=== PATIENT | female | born 1990 | race Caucasian/White ===

== ENCOUNTER 2020-08-14 12:03 | Inpatient (IN) ==
[2020-08-14] MEDS ORDERED: OXYTOCIN 30 UNITS/500 ML BAG IV PRN ×2 (14:27)
[2020-08-14 15:09] LABS: Hematocrit (blood only) 37.5 % (37-47); Hemoglobin 12.3 g/dL (12.0-16.0); Mean Corpuscular Hemoglobin 25.4 pg (25-34); Mean Corpuscular Hgb Conc 32.8 g/dL (32-36); Mean Corpuscular Volume 77.5 fL (80-100); Platelet Count 151 K/uL (130-400); RDW Coefficient of Variation 13.9 % (11.5-14.5); RDW Standard Deviation 39.7 fL (36.4-46.3); Red Blood Count 4.84 M/uL (4.2-5.4); White Blood Count 12.31 K/uL (4.8-10.8)
--- NOTE | 2020-08-14 15:09 | History & Physical Report ---
Date of Service August 14, 2020 Assessment & Plan (1) Premature rupture of membranes: PNL: Rh pos, RI, GBS neg Admit, labs, start IV COVID test ordered Patient would like to trial labor unmedicated. Not opposed to medications though if needed; epidural if/when desired; anesthesiology consult placed. Proceed with induction of labor per Pitocin augmentation protocol. Anticipate Admission and Anticipated Discharge Date Admission Date: August 14, 2020 History of Present Illness Primary Care Provider: Seth Sheldon MD Catrachita Solo is a 30 y/o female currently at 39+2 WGA with an CHRISTINE 08/19/20 as determined by LMP who is here for with prom. Her was complicated by an anterior midbody subserosal fibroid seen on colby u/s (4x4cm). Today, patient was evaluated in OB clinic and reported sensation of loss of fluid. She was found to have SE, no pool, + Nitrazine, and ferning. Patient with no specific complaints or concerns. - contractions; + movement; + fluid loss; - bloody show Had regular appointments with OB. Blood type: A+ Antibody screen: neg Labs 01/23/20 Rubella: immune VDRL/RPR: NR Gonorrhea: neg Chlamydia: neg HIV: neg HbSAg: neg GBS: neg 07/24/20 Other screens: panorama low risk, female; cf/sma neg Allergies Allergy/AdvReac Type Severity Reaction Status Date / Time miconazole [From Monistat 7] Allergy Severe Rash Verified 08/14/20 12:34 Home Medications Medication Instructions Recorded Confirmed Type prenat.vits,ernestina,[id number] 1 tab PO DAILY 01/17/20 08/14/20 History Patient History Medical History Deviated septum sinus surgery 11-19 Encounter for anatomic survey Surgical History S/P cholecystectomy S/P wisdom tooth extraction Family History Grandfather (Paternal) Hypertension Kidney disease Mother Ovarian cyst Other Alzheimer disease Dementia Social History (Reviewed 04/21/21 @ 17:05 by MIKY Conti Smoking Status: Never smoker Hx Alcohol Use: No Hx Substance Use: No Preferred Language: [place] Islander Communication Ability: Effective Archival Studies Professor Required: No Beliefs That Will Affect Care: None marital status: marital status details: Karl (30) [phone] Current Living Situation: Spouse Current Living Situation Comment: lives with spouse, 2 dogs, 2 cats, spouse to change litter. 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 Denies shortness of breath or cough. Denies chest pain. Denies breast pain. Denies dysuria or hematuria. Denies leg pain or leg swelling. Denies headache or changes in vision. Physical Exam Physical Exam: General: Alert, oriented. No acute distress. Cardiac: Regular rate and rhythm, no murmurs/rubs/gallops. Respiratory: Clear to auscultation bilaterally a/p, no wheezes/rales/rhonchi. No increased work of breathing. Symmetrical chest rise. No respiratory distress. Abdomen: Gravid. Vertex position. + heart tones. - palpable contractions. EFW 7-8# Pelvic: Dilation 1 cm; Effacement 80%; Station -[address] Galaviz External FHT and external uterine monitors used; Category I tracing; moderate FHT variability. Lower Extremities: No lower extremity edema or swelling. No deep calf pain. Susana's negative bilaterally Genitourinary: AROM for thin mec stained fluid. Results & Data ([facility]) Vital Signs (Past 12 Hours) Vital Signs Temp Pulse Resp BP 08/14/20 13:50 97 H 147/87 H 08/14/20 12:45 102 H 129/96 08/14/20 12:35 36.9 C 96 H 20 121/92 08/14/20 12:32 36.9 C 96 H 20 121/92 Laboratory Results 08/14/20 08/14/20 08/14/20 Range/Units 14:47 14:47 14:47 WBC (4.8-10.8) K/uL RBC (4.2-5.4) M/uL Hgb (12.0-16.0) g/dL Hct (37-47) % MCV (80-100) fL MCH (25-34) pg MCHC (32-36) g/dL RDW Std Deviation (36.4-46.3) fL RDW Coeff of Rashmi (11.5-14.5) % Plt Count (130-400) K/uL Sodium 136 (136-145) mmol/L Potassium 3.6 (3.5-5.1) mmol/L Chloride 107 (98-107) mmol/L Carbon Dioxide 22 (21-32) mmol/L Anion Gap 7.0 (3-11) BUN 8 (7-18) mg/dl Creatinine 0.62 (0.6-1.2) mg/dl Est Cr Clr Drug Dosing 121.3 ml/min Est GFR ( Amer) 139.3 Est GFR (Non-Af Amer) 120.2 BUN/Creatinine Ratio 12.1 (10-20) Glucose 68 L (70-99) mg/dl Calcium 8.5 (8.5-10.1) mg/dl Total Bilirubin 0.4 (0.2-1) mg/dl AST 10 L (15-37) U/L ALT 15 (12-78) U/L Alkaline Phosphatase 128 H (45-117) U/L Total Protein 6.2 L (6.4-8.2) gm/dl Albumin 2.6 L (3.4-5.0) gm/dl Globulin 3.6 (2.5-4.0) gm/dl Albumin/Globulin Ratio 0.7 L (0.9-2) COVID-19 Eval [facility] SARS-CoV-2, RNA, NAAT NEGATIVE (NEGATIVE) 08/14/20 Range/Units 14:47 WBC 12.31 H (4.8-10.8) K/uL RBC 4.84 (4.2-5.4) M/uL Hgb 12.3 (12.0-16.0) g/dL Hct 37.5 (37-47) % MCV 77.5 L (80-100) fL MCH 25.4 (25-34) pg MCHC 32.8 (32-36) g/dL RDW Std Deviation 39.7 (36.4-46.3) fL RDW Coeff of Rashmi 13.9 (11.5-14.5) % Plt Count 151 (130-400) K/uL Sodium (136-145) mmol/L Potassium (3.5-5.1) mmol/L Chloride (98-107) mmol/L Carbon Dioxide (21-32) mmol/L Anion Gap (3-11) BUN (7-18) mg/dl Creatinine (0.6-1.2) mg/dl Est Cr Clr Drug Dosing ml/min Est GFR ( Amer) Est GFR (Non-Af Amer) BUN/Creatinine Ratio (10-20) Glucose (70-99) mg/dl Calcium (8.5-10.1) mg/dl Total Bilirubin (0.2-1) mg/dl AST (15-37) U/L ALT (12-78) U/L Alkaline Phosphatase (45-117) U/L Total Protein (6.4-8.2) gm/dl Albumin (3.4-5.0) gm/dl Globulin (2.5-4.0) gm/dl Albumin/Globulin Ratio (0.9-2) COVID-19 Eval Order SARS-CoV-2, RNA, NAAT (NEGATIVE) Supervising Physician Co-Signing Physician Notes Resident Physician Supervision Note: I interviewed and examined the patient. Discussed with Dr. العلي and agree with findings and plan as documented in the note. Any exceptions or clarifications are listed here: [None] Documented By: Majo Swenson MD, FACOG Resident Activity Tracking Resident Involvement: Resident Care Provided Care Provided: OB Delivery
[2020-08-14 15:31] LABS: Albumin Level 2.6 gm/dl (3.4-5.0); BUN Creatinine Ratio 12.1 (10-20); Calcium 8.5 mg/dl (8.5-10.1); Creatinine Clr Calc Pharmacy 121.3 ml/min; Est GFR (African American) 139.3; Est GFR (Non-African American) 120.2; Potassium 3.6 mmol/L (3.5-5.1)
[2020-08-14 15:34] LABS: Albumin Globulin Ratio 0.7 (0.9-2); Bilirubin,Total 0.4 mg/dl (0.2-1); Globulin 3.6 gm/dl (2.5-4.0); Total Protein 6.2 gm/dl (6.4-8.2)
[2020-08-14] MEDS: LACTATED RINGER'S 1,000 ML IV PRN (16:02)
[2020-08-14] MEDS ORDERED: ONDANSETRON INJ 2 MG/ML 2 ML VIAL IV PRN (21:54)
[2020-08-14] MEDS ORDERED: BUPIVACAINE 0.25% 30 ML VIAL ONE (23:37)
[2020-08-14] MEDS ORDERED: SODIUM CHLORIDE 0.9% INJ 10 ML VIAL ONE (23:37)
[2020-08-14] MEDS ORDERED: ePHEDrine sulfate 50 MG/ML AMP ONE (23:37)
[2020-08-14] MEDS ORDERED: fentaNYL citrate 100 MCG/2 ML VIAL ONE (23:37)
[2020-08-14] MEDS ORDERED: fentaNYL 2MCG/ML ROPIVACAINE 1.25MG/ML 100 ML BAG EPI ONE (23:38)
--- NOTE | 2020-08-15 00:06 | Anesthesiology Consultation ---
Date of Service August 15, 2020 Assessment & Plan Chart Review Chart Review: Acceptable Risk for Surgery, Patient NOT seen in Pre Admission Testing and Acceptable Risk for Labor Epidural Consults Requested none ASA ASA2 Proposed Anesthesia Anesthesia Type: Labor Epidural and CSE Risk / Benefits Reviewed With: PT / POA / Parent / Guardian, Accepts Plan and Informed Consent Obtained Additional Comments: covid test negative History Height/Weight Height: 5 ft 1 in Weight: 74.389 kg Allergies Allergy/AdvReac Type Severity Reaction Status Date / Time miconazole [From Monistat 7] Allergy Severe Rash Verified 08/14/20 12:34 Medications Home Medications Medication Instructions Recorded Confirmed Last Taken prenat.vits,ernestina,ghg-kkok-rxxas 1 tab PO DAILY 01/17/20 08/14/20 08/13/20 18:00 Active Medications Generic Name Dose Route Start Last Admin Trade Name Freq PRN Reason Stop Dose Admin Lactated Ringer's 1,000 mls @ 125 mls/hr 08/14/20 14:27 08/14/20 23:28 Lr IV 08/16/20 14:26 999 mls/hr .Q8H PRN Infusion L&D Protocol Protocol Ondansetron HCl 4 mg 08/14/20 21:54 08/14/20 22:14 Ondansetron Inj 2 Mg/Ml 2 Ml Vial IV 09/13/20 21:53 4 mg Q6H PRN Administration Nausea And Vomiting NPO Date Last Intake of Fluids: 08/14/20 Time Last Intake of Fluids: 22:00 Date Last Intake of Solids: 08/14/20 Time Last Intake of Solids: 20:00 Past Medical History Medical History Deviated septum sinus surgery 11-19 Encounter for anatomic survey Exercise / Class Metabolic Activity II 4-5 Yardwork/Stairs/Walk up hill Past Family History Family History Grandfather (Paternal) Hypertension Kidney disease Mother Ovarian cyst Other Alzheimer disease Dementia Past Surgical History Surgical History S/P cholecystectomy S/P wisdom tooth extraction Past Anesthesia History No Hx of Anesthesia Complications and No Family Hx of Anesthesia Complications History of PONV No Hx of PONV and No Hx of Motion Sickness Social History Smoking Status: Never smoker Hx Alcohol Use: No Hx Substance Use: No Physical Exam Vital Signs Last Vital Signs Temp 36.7 C 08/14/20 18:58 Pulse 97 H 08/15/20 00:01 Resp 18 08/14/20 18:58 BP 135/90 08/14/20 23:30 Pulse Ox 100 08/15/20 00:01 Constitutional + obese ENMT Mouth: no dentition abnormality Thyromental Distance: < 3.5 Finger Breadths Mallampati Class: II Neck normal visual inspection and trachea midline; neck extension not limited Respiratory normal respiratory effort Auscultation: lungs clear to auscultation bilaterally Cardiovascular Rate/Rhythm: regular rate and regular rhythm Heart Sounds: no murmur Vessels: no carotid bruit Musculoskeletal Spine: lumbar spine normal to inspection; normal cervical ROM Neurologic moves all extremities Motor/Sensory: no sensory deficit Psychiatric Orientation: alert and oriented x 3 Testing Laboratory Results 08/14/20 14:47 08/14/20 14:47
[2020-08-15] MEDS ORDERED: NALOXONE HCL 1 MG in SODIUM CHLORIDE 0.9% 1000ML 1,000 ML IV PRN (00:32)
[2020-08-15] MEDS ORDERED: PROMETHAZINE HCL 25 MG in SODIUM CHLORIDE 0.9% 50 ML IV PRN (00:32)
[2020-08-15] MEDS ORDERED: diphenhydrAMINE 50 MG/ML VIAL IV PRN (00:32)
[2020-08-15] MEDS ORDERED: fentaNYL 2MCG/ML ROPIVACAINE 1.25MG/ML 100 ML BAG EPI PRN (00:32)
[2020-08-15] MEDS ORDERED: ONDANSETRON INJ 2 MG/ML 2 ML VIAL IV PRN (00:32)
[2020-08-15] MEDS ORDERED: NALOXONE HCL 0.4 MG/1 ML VIAL/CARP IV PRN (00:32)
[2020-08-15] MEDS ORDERED: ePHEDrine sulfate 50 MG/ML AMP IV PRN (00:32)
[2020-08-15] MEDS: LACTATED RINGER'S 1,000 ML IV PRN (03:53)
[2020-08-15] MEDS ORDERED: OXYTOCIN 30 UNITS/500 ML BAG IV PRN (07:25)
[2020-08-15] MEDS ORDERED: IBUPROFEN 600 MG TAB PO PRN (07:25)
[2020-08-15] MEDS ORDERED: ACETAMINOPHEN 325 MG TAB PO PRN (07:25)
[2020-08-15] MEDS ORDERED: bisacodyL 10 MG SUPP PR PRN (08:23)
[2020-08-15] MEDS ORDERED: DIPHTHERIA/TETANUS/PERTUSSIS 0.5 ML SYR/VIAL IM ONE (08:23)
[2020-08-15] MEDS ORDERED: HYDROCORTISONE ACETATE 25 MG SUPP PR PRN (08:23)
[2020-08-15] MEDS ORDERED: SUPERCREAM 0.870% 15 GM JAR EXT PRN (08:23)
[2020-08-15] MEDS ORDERED: BENZOCAINE 20% AER SPR 82.5 GM CAN EXT PRN (08:23)
--- NOTE | 2020-08-15 08:52 | Anesthesia Procedure Note ---
Date of Service August 15, 2020 Anesthesia Post Epidural Note Vital Signs Vital Signs: Temp Pulse Resp BP Pulse Ox 37.0 C 110 H 20 113/70 91 08/15/20 04:57 08/15/20 08:38 08/15/20 08:38 08/15/20 08:38 08/15/20 07:36 Notes Mental Status: alert / awake / arousable and participated in evaluation Patient Amnestic to Procedure: No Nausea / Vomiting: adequately controlled Pain: adequately controlled Airway Patency, RR, SpO2: stable & adequate BP & HR: stable & adequate Hydration State: stable & adequate Neuraxial Anesthesia: was administered and sensory block is resolving Anesthetic Complications: no major complications apparent and Pt Satisfied with anesthetic care Epidural: Removed without complications and With tip intact
[2020-08-15] MEDS ORDERED: NON-FORMULARY MEDICATION (Prenat.Vits,Cal,Min-Iron-Folic tablet) PO SCH (09:00)
--- NOTE | 2020-08-15 09:58 | Delivery Summary ---
Vaginal Delivery Summary Date of Service August 15, 2020 Patient is a 30-year-old 1 P0 white female who presented at 39-2/7 weeks with suspicion of ruptured membranes following her regularly scheduled OB visit. She was confirmed to be ruptured although just leaking a small amount of fluid. Membranes were then actively ruptured for thin meconium stained fluid. She began whit spontaneously at that time. She received effective epidural analgesia. She progressed to full dilation and pushed effectively over intact perineum for delivery of a viable female . The rest of the delivered easily and was placed on the mother's abdomen for further attention and drying. The infant was vigorous and moving all 4 limbs. After approximately 1 minute the cord was clamped and cut. The placenta was expressed intact with a three-vessel cord. A periclitoral superficial laceration was bleeding and was repaired with a [id number] stitch of 3-0 chromic. Otherwise the perineum was intact. Estimated blood loss was 250 cc bleeding was controlled with dilute Pitocin. Mother and were doing well after delivery. Vaginal Delivery Summary and 1st Degree LAC (repair of bleeding superficial valeria-clitoral tear) [facility] [place] Charge Delivery Type Details: and 1st Degree LAC (repair of bleeding superficial valeria-clitoral tear)
[2020-08-15] MEDS: PRENATAL VITAMIN 1 TAB PO SCH (10:22)
[2020-08-15] MEDS: DOCUSATE SODIUM 100 MG CAP PO SCH ×2 (10:22→21:00)
--- NOTE | 2020-08-16 06:32 | Obstetrical Progress Note ---
Date of Service <Bambi العلي DO - Last Filed: 08/16/20 06:59> August 16, 2020 Assessment & Plan <Bambi العلي DO - Last Filed: 08/16/20 06:59> (1) state: PPD #1 - PNL: Rh pos, RI, GBS neg, COVID neg - Feels well today. Eating well, voiding well, ambulating well. - Pain well controlled with ibuprofen 600mg Q4H PRN - Routine care -- OOB, ambulation, diet progression as tolerated - After discharge will have 6 week follow-up with Dr. Galaviz. - Patient requesting d/c home today. Subjective <Bambi العلي DO - Last Filed: 08/16/20 06:59> Catrachita Solo is a 30 y/o female who is PPD #1 following spontaneous vaginal delivery at 39+3 weeks. She reports feeling well overall this morning. Minimal abdominal cramping and 0/10 pain well managed on analgesics. Voiding without dysuria. Tolerating meals overnight without difficulty, nausea, or vomiting. Patient has been able to ambulate some. She is passing gas. Has persistent lochia with some improvement this morning. Currently . Review of Systems Denies fever or chills. Denies shortness of breath or cough. Denies chest pain. Denies breast pain. Denies dysuria. Denies leg pain or leg swelling. Denies headache or changes in vision. Physical Exam <Bambi العلي DO - Last Filed: 08/16/20 06:59> General: Alert, oriented. No acute distress. Cardiac: Regular rate and rhythm. No murmurs. Respiratory: Clear to auscultation bilaterally a/p, no wheezes/rales/rhonchi. No increased work of breathing. Symmetrical chest rise. No respiratory distress. Abdomen: Soft, nontender, nondistended. Bowel sounds present. Uterus: Uterine fundus firm, palpable 2 cm below umbilicus. Lower Extremities: No lower extremity edema or swelling. No deep calf pain. Susana's negative bilaterally. Results & Data ([facility]) <Bambi العلي DO - Last Filed: 08/16/20 06:59> Vital Signs (Past 12 Hours) Vital Signs Temp Pulse Resp BP Pulse Ox 08/16/20 04:05 36.7 C 76 18 112/75 08/15/20 23:35 36.7 C 87 18 113/77 08/15/20 20:55 36.7 C 88 18 115/76 98 Laboratory Results 08/16/20 Range/Units 06:06 WBC 14.93 H (4.8-10.8) K/uL RBC 4.09 L (4.2-5.4) M/uL Hgb 10.4 L (12.0-16.0) g/dL Hct 32.0 L (37-47) % MCV 78.2 L (80-100) fL MCH 25.4 (25-34) pg MCHC 32.5 (32-36) g/dL RDW Std Deviation 40.5 (36.4-46.3) fL RDW Coeff of Rashmi 14.3 (11.5-14.5) % Plt Count 124 L (130-400) K/uL Platelet Estimate Decreased L (Normal) <Thalia Banerjee MD - Last Filed: 08/16/20 07:12> Co-Signing Physician Notes Resident Physician Supervision Note: I interviewed and examined the patient. Discussed with Dr. العلي and agree with findings and plan as documented in the note. Any exceptions or clarifications are listed here: PP1 s/p , doing well. VSS, exam benign and wnl. Meeting all pp milestones. Desires d/c home today, ok for OB standpoint as long as peds ok with it Documented By: Thalia Banerjee MD Resident Activity Tracking <Bambi العلي DO - Last Filed: 08/16/20 06:59> Resident Involvement: Resident Care Provided Care Provided: OB Delivery
[2020-08-16 06:45] LABS: Hemoglobin 10.4 g/dL (12.0-16.0); Mean Corpuscular Hemoglobin 25.4 pg (25-34); Mean Corpuscular Hgb Conc 32.5 g/dL (32-36); Mean Corpuscular Volume 78.2 fL (80-100); Platelet Count 124 K/uL (130-400); RDW Coefficient of Variation 14.3 % (11.5-14.5); RDW Standard Deviation 40.5 fL (36.4-46.3); Red Blood Count 4.09 M/uL (4.2-5.4); White Blood Count 14.93 K/uL (4.8-10.8)
[2020-08-16 06:46] LABS: Platelet Estimate Decreased (Normal)
[2020-08-16] MEDS: DOCUSATE SODIUM 100 MG CAP PO SCH (07:41)
[2020-08-16] MEDS: PRENATAL VITAMIN 1 TAB PO SCH (07:41)
[2020-08-16] MEDS ORDERED: bisacodyL 5 MG TABEC PO SCH (20:00)
== END 2020-08-16 17:57 | disposition home or self-care (01) | DRG 807 ==
LOC: OPB 12:03 → 4S2 12:05 → 4S1 18:40 → 4S2 08-15 10:00